=== PATIENT | male | born 1970 | race Caucasian/White ===

== ENCOUNTER 2024-09-12 12:15 | Emergency (ER) | payer SELFPAY ==
--- NOTE | ~2024-09-12 | XR_ITS ---
XR wrist LT min 3V Ordering provider: Lonnie Saab MD History: . pain/swelling NKI . Comparison: None. FINDINGS: BONES: No acute fracture or dislocation. No definite scaphoid fracture. Cystic changes are seen in t he scaphoid, capitate and hamate bones. Cystic area seen in the distal left radius. Cystic area seen proximal metaphysis of the second metacarpal bone. JOINT SPACES: Osteoarthritic changes of the first carpometacarpal joint and also in the joint between the scaphoid and trapezium. SOFT TISSUES: Normal. IMPRESSION: No acute osseous abnormality left wrist. Cystic areas in multiple bones. Osteoarthritic changes in multiple joints. Reviewed, dictated and finalized at location A.
[2024-09-12 12:15] VITALS: BP 124/87; PULSE 68; RESP 16; TEMP 36.2; O2SAT 99
--- NOTE | 2024-09-12 12:22 | ED_ITS ---
HPI - General Adult General Chief complaint: Extremity Problem,Nontraumatic Stated complaint: wrist pain Time Seen by Provider: 09/12/24 12:21 Source: patient Mode of arrival: ambulatory Limitations: no limitations History of Present Illness HPI narrative: patient is a 54-year-old male who does not see a doctor regularly. He is here for a left wrist swelling and pain over the past week. Also has some numbness to the 4th and 5th digit. Also, he has some skin infections for review today particularly of the left upper lip. He had many complaints but at this time we are going to focus on the 2 areas of concern. The rest of it can be done with the primary as an outpatient. Onset (ago): week(s) ( One) Location: face ( left upper lip skin lesion), neck ( left posterior neck skin lesion), left and upper extremity ( left wrist swelling and pain for the past week) Radiation: extremity ( left upper extremity has pain from the fingers to the elbow) Severity: severe Severity scale (1-10): 8 Quality: burning, stabbing and sharp Pain Consistency: constant Relieving factors: none Exacerbating factors: movement Associated symptoms: denies other symptoms Treatments prior to arrival: none Related Data Allergies Allergy/AdvReac Type Severity Reaction Status Date / Time codeine Allergy Mild Nausea and Verified 09/12/24 12:47 Vomiting Review of Systems Review of Systems: All systems reviewed & are unremarkable except as noted in HPI and below Constitutional: Constitutional: Reports no additional constitutional complaints Eyes: Eyes: Reports no additional eye complaints ENT: Reports system reviewed and no additional complaints, except as documented Cardiovascular: Cardiovascular: Reports no additional cardiovascular complaints Respiratory: Respiratory: Reports no additional respiratory complaints Gastrointestinal: Gastrointestinal: Reports no additional gastrointestinal complaints Genitourinary: Genitourinary: Reports no additional male genitourinary complaints Musculoskeletal: Musculoskeletal: Reports no additional musculoskeletal complaints Integumentary/Breasts: Skin/Breast: Reports system reviewed and no additional complaints, except as docu Neurologic: Reports system reviewed and no additional complaints, except as documented Psychiatric: Psychiatric: Reports no additional psychiatric complaints Endocrine: Endocrine: Reports no additional endocrine complaints Hematologic/Lymphatic: Hematologic/Lymphatic: Reports no additional hematologic/lymphatic complaints Allergic/Immunologic: Allergic/Immunologic: Reports no additional allergic/immunologic complaints Exam Const: General: healthy appearing Nutritional Appearance: well nourished Orientation/consciousness: patient oriented x3 Limitations: no limitations HENMT: Head: normal to inspection Ears: external ears normal Face/Nose/Sinus: Normal external nose present Eyes: Conjunctivae: conjunctivae normal Pupils: Equal, round and reactive pupils present EOM: EOMs intact bilaterally Neck: Neck: normal visual inspection Chest: Chest palpation & inspection: normal inspection of the chest Resp: Effort & Inspection: normal respiratory effort and not labored Auscultation: clear to auscultation bilaterally and no crackles Cardio: Rate: regular rate Rhythm: regular rhythm Heart sounds: no murmurs GI: Inspection: non-distended GI Palp: Yes Soft to palpation and No Tenderness to palpation present (GI) Auscultation: normal bowel sounds : General: Yes bladder normal to palpation Back/Spine/Pelvis: Back: no CVA tenderness Skin: General skin exam: normal color Rashes: rash noted Wounds: no wounds Other: left upper lip above the rim in the mustache line area has a moderately sized area of redness and papular lesion of folliculitis/cellulitis as well as a similar 1 more so red on the left posterior neck at the hairline; a few other miscellaneous similar lesions on the chest Neuro: General: patient oriented x3, moves all extremities, no meningeal signs, no focal motor deficits and CN's II-XI intact bilaterally Cranial nerves: Yes Nystagmus not present Speech: normal speech Gait exam (Neuro): Normal gait present Other: NIH score is 0 (numbness of the left 4th and 5th digit is secondary to swelling) Extrem: General: abnormal to inspection, no clubbing, cyanosis or edema, no pedal edema and no edema Other: left wrist is swollen and tender to movement and palpation with slight erythema Psych: Mental Status: mental status grossly normal Affect: normal affect Attitude: cooperative Course Vital Signs Vital signs: Vital Signs Temperature 36.2 C L 09/12/24 12:15 Pulse Rate 68 09/12/24 12:15 Respiratory Rate 16 09/12/24 12:15 Blood Pressure 124/87 09/12/24 12:15 Pulse Oximetry 99 09/12/24 12:15 Oxygen Delivery Room Air 09/12/24 12:15 Temperature 36.2 C L 09/12/24 12:15 Pulse Rate 68 09/12/24 12:15 Respiratory Rate 16 09/12/24 12:15 Blood Pressure 124/87 09/12/24 12:15 Pulse Oximetry 99 09/12/24 12:15 Oxygen Delivery Room Air 09/12/24 12:15 Medical Decision Making [facility] Narrative Medical decision making narrative: patient is a 54-year-old male with left wrist pain and swelling as well as left upper lip and other skin lesions for review that appear to be cellulitis. We will do an x-ray of the wrist and treat for MRSA of the skin. Vital Signs Vital Signs: Vital Signs Temperature 36.2 C L 09/12/24 12:15 Pulse Rate 68 09/12/24 12:15 Respiratory Rate 16 09/12/24 12:15 Blood Pressure 124/87 09/12/24 12:15 Pulse Oximetry 99 09/12/24 12:15 Oxygen Delivery Room Air 09/12/24 12:15 Temperature 36.2 C L 09/12/24 12:15 Pulse Rate 68 09/12/24 12:15 Respiratory Rate 16 09/12/24 12:15 Blood Pressure 124/87 09/12/24 12:15 Pulse Oximetry 99 09/12/24 12:15 Oxygen Delivery Room Air 09/12/24 12:15 Imaging Data Attestation: I personally reviewed and interpreted this imaging study as follows: Radiologist's impression: x-ray of the left wrist is negative for acute process Discharge Plan Discharge Clinical Impression: Gout, Neurapraxia, Folliculitis Patient Disposition: Home, Self-Care Condition: Stable Instructions: Antibiotic Form, Gout (ED), Folliculitis (ED) Additional Instructions: please follow-up with the primary doctor in the next 1-2 weeks. It would be helpful to follow-up regularly so you can address all of the issues that you have concerns with here today. Patient Language: Japanese Prescriptions: New colchicine 0.6 mg capsule 0.6 mg PO DAILY Qty: 9 0RF Rx Instructions: 1.2mg now, then 0.6mg daily x7d indomethacin 25 mg capsule 25 mg PO TID PRN (Reason: pain) Qty: 20 0RF Rx Instructions: 1-2 tabs per dose; administer with food or milk doxycycline monohydrate 100 mg capsule 100 mg PO BID 10 Days Qty: 20 0RF methylprednisolone [Medrol (Dante)] 4 mg tablets,dose pack See Rx Instructions .ROUTE .COMPLEX Qty: 21 0RF Rx Instructions: orally per package directions Follow-up/Referrals: UNKNOWN,DOCTOR [Non-Staff] - Time of Disposition: 14:14
[2024-09-12] MEDS: KETOROLAC (*BKC) 60 MG/2 ML VIAL IM (13:16)
[2024-09-12] MEDS: methylPREDNISolone SOD SUCC 125 MG VIAL IM (14:14)
[2024-09-12 14:15] VITALS: BP 130/90; PULSE 55; RESP 16; O2SAT 97
== END 2024-09-12 14:29 | disposition home or self-care (01) ==
PROVIDERS: Emergency Provider Emergency Medicine; PCP Family Medicine
DX: M10.9 Gout, unspecified (principal); T14.8XXA Other injury of unspecified body region, initial encounter; L73.9 Follicular disorder, unspecified; X58.XXXA Exposure to other specified factors, initial encounter
CPT/HCPCS: 73110; 96372; 99284; J1885; J2919

== ENCOUNTER 2024-10-14 18:24 | Emergency (ER) | payer MEDICAID, SELFPAY ==
--- NOTE | ~2024-10-14 | XR_ITS ---
XR knee LT 3V Ordering provider: Ismael Parra DO History: . worsening knee pain. . Comparison: None. FINDINGS: BONES: No acute fracture or dislocation. JOINT SPACES: Normal. Marginal osteophytes in the patella. Chondrocalcinosis seen in the medial brodie rtment. SOFT TISSUES: Normal. IMPRESSION: No acute osseous abnormality left knee. Mild osteoarthritic changes. Chondrocalcinosis. Reviewed, dictated and finalized at location A.
--- NOTE | ~2024-10-14 | XR_ITS ---
XR chest 1V portable Ordering provider: Ismael Parra DO History: 54 years Male with . cough . Comparison: None. FINDINGS: MEDIASTINUM: The cardiac silhouette is not enlarged. LUNGS: No effusions or pneumothorax. Prominent bronchovascular markings in the left lower lobe. Early pneumonia cannot be excluded. OTHER: No free air under the diaphragm. IMPRESSION: Prominent bronchovascular markings in the left lower lobe. Early pneumonia cannot be excluded. Follow -up advised. Reviewed, dictated and finalized at location A. IMPRESSION: Prominent bronchovascular markings in the left lower lobe. Early pneumonia ted ot be excluded. Follow-up advised.
[2024-10-14 18:33] VITALS: BP 141/90; PULSE 66; RESP 18; TEMP 36.6; O2SAT 96
--- NOTE | 2024-10-14 18:33 | ED_ITS ---
HPI - General Adult General Chief complaint: Upper Respiratory Infection Stated complaint: SOB Time Seen by Provider: 10/14/24 18:25 History of Present Illness HPI narrative: Dennis is a 54M with a PMH of CVA, gout, (eye and throat cancer?) that presented to the ED with worsening cough, congestion and left sinus pain for 2 weeks in addition to worsening left knee pain. No new injury or trauma. No CP, fevers, dyspnea or lightheadedness. Related Data Allergies Allergy/AdvReac Type Severity Reaction Status Date / Time codeine Allergy Mild Nausea and Verified 10/14/24 18:29 Vomiting Review of Systems Review of Systems: All systems reviewed & are unremarkable except as noted in HPI and below Exam Const: General: cooperative, healthy appearing, comfortable, no acute distress, well developed, alert, awake and Physically active Efraín entation/consciousness: oriented to person, oriented to place and oriented to time HENMT: Head: normal to inspection, normocephalic and atraumatic Ears: hearing grossly normal bilaterally and external ears normal Face/Nose/Sinus: Normal external nose present Other: TTP in left sinus Eyes: General: appearance normal, both eyes and all related structures Periorbital: periorbital findings normal Sclera: sclerae normal Pupils: Equal, round and reactive pupils present Neck: Neck: normal visual inspection Chest: Chest palpation & inspection: normal inspection of the chest Resp: Effort & Inspection: normal respiratory effort, able to speak in complete sentences and no respiratory distress Auscultation: clear to auscultation bilaterally Cardio: Jugular venous distension: no JVD Rate: regular rate Rhythm: regular rhythm GI: Inspection: normal to inspection GI Palp: Yes Soft to palpation Auscultation: normal bowel sounds Skin: General skin exam: normal color and no rashes or lesions noted Neuro: General: oriented to person, oriented to place and oriented to time Cranial nerves: Yes Equal, round and reactive pupils present Extrem: General: normal to inspection Course Course Emergency Course: Ordered radiographs and labs XR chest 1V portable Ordering provider: Ismael Parra DO History: 54 years Male with . cough . Comparison: None. FINDINGS: MEDIASTINUM: The cardiac silhouette is not enlarged. LUNGS: No effusions or pneumothorax. Prominent bronchovascular markings in the left lower lobe. Early pneumonia cannot be excluded. OTHER: No free air under the diaphragm. IMPRESSION: Prominent bronchovascular markings in the left lower lobe. Early pneumonia cannot be excluded. Follow-up advised. XR knee LT 3V Ordering provider: Ismael Parra DO History: . worsening knee pain. . Comparison: None. FINDINGS: BONES: No acute fracture or dislocation. JOINT SPACES: Normal. Marginal osteophytes in the patella. Chondrocalcinosis seen in the medial compartment. SOFT TISSUES: Normal. IMPRESSION: No acute osseous abnormality left knee. Mild osteoarthritic changes. Chondrocalcinosis. Given leukocytosis and CXR findings will treat for pneumonia and sinusitis. Vital Signs Vital signs: Vital Signs Temperature 97.8 F 10/14/24 18:33 Pulse Rate 66 10/14/24 18:33 Respiratory Rate 18 10/14/24 18:33 Blood Pressure 141/90 H 10/14/24 18:33 Pulse Oximetry 96 10/14/24 18:33 Oxygen Delivery Room Air 10/14/24 18:33 Temperature 97.8 F 10/14/24 18:33 Pulse Rate 66 10/14/24 18:33 Respiratory Rate 18 10/14/24 18:33 Blood Pressure 141/90 H 10/14/24 18:33 Pulse Oximetry 96 10/14/24 18:33 Oxygen Delivery Room Air 10/14/24 18:33 Medical Decision Making Vital Signs Vital Signs: Vital Signs Temperature 97.8 F 10/14/24 18:33 Pulse Rate 66 10/14/24 18:33 Respiratory Rate 18 10/14/24 18:33 Blood Pressure 141/90 H 10/14/24 18:33 Pulse Oximetry 96 10/14/24 18:33 Oxygen Delivery Room Air 10/14/24 18:33 Temperature 97.8 F 10/14/24 18:33 Pulse Rate 66 10/14/24 18:33 Respiratory Rate 18 10/14/24 18:33 Blood Pressure 141/90 H 10/14/24 18:33 Pulse Oximetry 96 10/14/24 18:33 Oxygen Delivery Room Air 10/14/24 18:33 Discharge Plan Discharge Clinical Impression: Pneumonia, Sinusitis, Osteoarthritis Patient Disposition: Home Condition: Stable Instructions: Antibiotic Form Patient Language: Burkinan Prescriptions: New amoxicillin-pot clavulanate 875-125 mg tablet 1 tablet PO Q12H Qty: 10 0RF azithromycin 500 mg tablet 500 mg PO DAILY 4 Days Qty: 4 0RF No Action colchicine 0.6 mg capsule 0.6 mg PO DAILY Qty: 9 0RF Rx Instructions: 1.2mg now, then 0.6mg daily x7d indomethacin 25 mg capsule 25 mg PO TID PRN (Reason: pain) Qty: 20 0RF Rx Instructions: 1-2 tabs per dose; administer with food or milk doxycycline monohydrate 100 mg capsule 100 mg PO BID 10 Days Qty: 20 0RF methylprednisolone [Medrol (Dante)] 4 mg tablets,dose pack See Rx Instructions .ROUTE .COMPLEX Qty: 21 0RF Rx Instructions: orally per package directions Follow-up/Referrals: Ismael Parra DO [Primary Care Provider] -
[2024-10-14 18:41] LABS: Basophils Absolute Auto 0.03 K/mm3 (0.00-0.10); Basophils Percent Auto 0.2 % (0.0-1.0); Eosinophils Absolute Auto 0.31 K/mm3 (0.02-0.50); Eosinophils Percent Auto 2.2 % (1.0-6.0); Hematocrit 41.9 % (40.0-54.0); Hemoglobin 13.5 g/dL (14.0-18.0); Immature Granulocyte Absolute 0.06 K/mm3 (0.00-0.00); Immature Granulocyte Percent A 0.4 % (0.0-0.0); Lymphocytes Absolute Auto 4.24 K/mm3 (1.10-4.50); Lymphocytes Percent Auto 30.5 % (18.0-42.0); Mean Corpuscular HGB Conc 32.2 g/dL (32-36); Mean Corpuscular Hemoglobin 28.9 pg (27.0-31.0); Mean Corpuscular Volume 89.7 fL (78.0-102.0); Mean Platelet Volume 9.4 fl (8.7-11.0); Monocytes Absolute Auto 1.08 K/mm3 (0.10-0.90); Monocytes Percent Auto 7.8 % (2.0-11.0); Neutrophils Absolute Auto 8.16 K/mm3 (1.70-7.20); Neutrophils Percent Auto 58.9 % (50.0-70.0); Platelet Count Result 259 K/mm3 (150-420); Red Blood Count 4.67 M/mm3 (4.70-6.10); Red Cell Distribution Width 14.4 % (11.6-14.4); White Blood Count 13.9 K/mm3 (4.8-10.8)
[2024-10-14 18:55] LABS: Alanine Aminotransferase 27 U/L (16-63); Albumin Level 3.5 g/dL (3.4-5.0); Alkaline Phosphatase 105 U/L (46-116); Anion Gap 8 mmol/L (4-12); Aspartate Amino Transferase 18 U/L (15-37); Bilirubin,Total 0.3 mg/dL (0.00-1.00); Blood Urea Nitrogen 14 mg/dL (7-18); Calcium 8.8 mg/dL (8.5-10.1); Carbon Dioxide 29 mmol/L (21-32); Chloride 104 mmol/L (98-108); Estimated CRCL calculation 78 ml/min; Estimated Glomerular Filt Rate > 60; Glucose 99 mg/dL (70-99); Osmolality Calculated 292 mOsm/kg (285-295); Potassium 3.7 mmol/L (3.5-5.1); Sodium 141 mmol/L (136-145); Total Protein 7.4 g/dL (6.4-8.2)
[2024-10-14] MEDS: AMOXICILLIN/CLAVULANATE K 875-125 MG TAB 1 TABLET PO (19:01)
[2024-10-14] MEDS: AZITHROMYCIN 250 MG TABLET 500 MG PO (19:01)
[2024-10-14 19:25] VITALS: BP 141/82; PULSE 72; RESP 18; O2SAT 99
== END 2024-10-14 19:25 | disposition home or self-care (01) ==
PROVIDERS: Emergency Provider Family Medicine; PCP Family Medicine
DX: J18.9 Pneumonia, unspecified organism (principal); J32.9 Chronic sinusitis, unspecified; M19.90 Unspecified osteoarthritis, unspecified site; M25.562 Pain in left knee
CPT/HCPCS: 36415; 71045; 73562; 80053; 85025; 99284; A9270